=== PATIENT | female | born 1950 | race Caucasian/White ===

== ENCOUNTER 2023-11-21 06:02 | Observation (INO) ==
[~2023-11-21 06:02] MED LIST: NS 0.45% 1000 ml BAG 1,000 ML IV SCH; Naloxone 0.4 mg VIAL 0.4 mg/ml 1 ml VIAL IV PRN; Ondansetron 4 mg VIAL 2 MG/ML 2 ml VIAL IV PRN
[2023-11-21 06:47] LABS: Rapid COVID-19 Molecular Undetected (Undetected)
[2023-11-21] MEDS: Buffered Lidocaine 1% SYRIN 1 ml INTRADERM ONE ×2 (06:50→18:01)
[2023-11-21] MEDS ORDERED: ceFAZolin 2 GM PREMIX 2 GM/50 ML BAG ONE ×2 (06:51→15:51)
[2023-11-21] MEDS ORDERED: Chlorhexidine MOUTHWASH 0.12% 15 ML UDC ONE (06:52)
[2023-11-21] MEDS ORDERED: Lidocaine 1% w EPI 1:100,000 MDV 20 ML VIAL ONE ×2 (06:53→15:23)
[2023-11-21] MEDS ORDERED: Thrombin 5,000 UNITS(BOVINE) for Ultrasound Guided Pseudoaneursym ONE ×2 (06:53→15:23)
[2023-11-21] MEDS ORDERED: ceFAZolin VIAL VIAL ONE ×2 (06:53→15:23)
[2023-11-21] MEDS: Lactated Ringers 1000 ml BAG 1,000 ML IV SCH ×3 (07:05→18:01)
[2023-11-21] MEDS ORDERED: Midazolam 2 mg/2 ml VIAL 1 mg/ml 2 ml VIAL (2 mg) ONE (07:29)
[2023-11-21] MEDS ORDERED: Lidocaine 2% PF 5 ML VIAL ONE ×2 (07:30→15:23)
[2023-11-21] MEDS ORDERED: Rocuronium 50 mg VIAL 10 mg/ml 5 ml VIAL (50 mg) ONE ×3 (07:37→15:31)
[2023-11-21] MEDS ORDERED: Propofol 10 MG/ML 20 ML BTL ONE ×2 (07:40→15:23)
[2023-11-21] MEDS ORDERED: fentaNYL 100 mcg/2 ml 50 MCG/ML VIAL ONE ×2 (07:58→15:23)
[2023-11-21] MEDS ORDERED: Dexamethasone IV 4 MG/ML VIAL 1 ml VIAL ONE (08:04)
[2023-11-21] MEDS ORDERED: Ondansetron 4 mg VIAL 2 MG/ML 2 ml VIAL ONE ×2 (08:04→16:29)
[2023-11-21] MEDS ORDERED: Magnesium Sulfate IV 0.5 GM/ML 2 ml VIAL (1 gm) ONE (08:06)
[2023-11-21] MEDS ORDERED: Dexmedetomidine 200 mcg/2 ml 2 ml VIAL (200 mcg) ONE (08:15)
[2023-11-21] MEDS ORDERED: Phenylephrine IV 10 MG/ML 1 ml VIAL ONE (08:44)
[2023-11-21] MEDS ORDERED: Acetaminophen IV 1 GM/100ML 1,000 MG/100 ML BAG IV ONE (08:48)
[2023-11-21] MEDS ORDERED: Bupivacaine 0.25% w/EPI 10 ML SDV ONE (10:21)
[2023-11-21] MEDS ORDERED: Dextran 70/Hypromellose Tears Eye Drops 15 ml BTL (for Artificials Tears) BOTH EYES PRN (11:00)
[2023-11-21] MEDS ORDERED: Phenol 1.4% Throat Spray BTL MT PRN (11:00)
[2023-11-21] MEDS ORDERED: Calcium Carb (TUMS) 500 mg CHEW TAB PO PRN (11:00)
[2023-11-21] MEDS ORDERED: Senna TAB 8.6 mg TAB PO PRN (11:00)
[2023-11-21] MEDS ORDERED: Magnesium Hydroxide LIQ 30 ML UDC PO PRN (11:00)
[2023-11-21] MEDS ORDERED: Albuterol HFA INHALER 8 gm MDI INH PRN (11:02)
[2023-11-21] MEDS: Acetaminophen IV 1 GM/100ML 1,000 MG/100 ML BAG IV ONE ×2 (12:14→18:00)
[2023-11-21] MEDS: Lidocaine 4 MG/ML IV PREMIX 2,000 MG/500 ML BAG IV ONE (12:14)
[2023-11-21] MEDS: Famotidine IV 10 MG/ML 2 ml VIAL (20 mg) IV SLOW PU ONE (12:18)
[2023-11-21] MEDS: Ondansetron 4 mg VIAL 2 MG/ML 2 ml VIAL IV PRN (12:49)
[2023-11-21] MEDS: Morphine 2 MG/ML SYRINGE IV PRN (12:49)
[2023-11-21] MEDS ORDERED: Sevoflurane BOTTLE ONE (15:28)
[2023-11-21] MEDS ORDERED: Ondansetron 4 mg VIAL 2 MG/ML 2 ml VIAL IV PRN (17:38)
[2023-11-21] MEDS ORDERED: Naloxone 0.4 mg VIAL 0.4 mg/ml 1 ml VIAL IV PRN (17:38)
[2023-11-21] MEDS ORDERED: Metoclopramide 5 MG/ML VIAL (10 mg) IV PRN (17:38)
[2023-11-21] MEDS ORDERED: NS 0.45% 1000 ml BAG 1,000 ML IV SCH (18:00)
[2023-11-21] MEDS: ceFAZolin 2 GM PREMIX 2 GM/50 ML BAG IV ONE (18:01)
[2023-11-21] MEDS: Scopolamine 1 mg/72hr PATCH TRANSDERM ONE (18:01)
[2023-11-21 18:36] LABS: Platelet Count 276 10^3/ul (150-450)
[2023-11-21 18:54] LABS: Activated Partial Thrombo Time 29.9 seconds (26.0-38.0); INR 1.02 (0.85-1.14)
[2023-11-21 20:00] LABS: Schistocytes ABSENT
[2023-11-22] MEDS: CMCS: LoraTADine 10 mg TAB (NF) PO SCH (08:14)
[2023-11-23] MEDS: Benzocaine/Menthol LOZ MT PRN (07:22)
[2023-11-23 10:07] VITALS: BP 124/78
== END 2023-11-23 10:34 | disposition home or self-care (01) ==
LOC: OR 06:02 → SSU 06:02
PROVIDERS: ADMIT Neurological Surgery; ATTEND Neurological Surgery
PROC: O.NEI&D (2023-11-21 16:00)